=== PATIENT | female | born 1955 | race Caucasian/White ===

== ENCOUNTER 2019-10-28 15:18 | Emergency (ER) | payer MEDICARE, OTHER ==
[~2019-10-28] VITALS: Ht 167.6 cm; Wt 81.7 kg
[~2019-10-28 15:18] MED LIST: ANTACID500 MG PO; ASPIRIN81 M2 PO; B COMPLEX-VITA1 EACH PO; BUDEPRION XL300 MG PO; CALCIUM 600 +1 EAC8 PO; FISH OIL 1,0001 EAC5 PO; GLUCOPHAGE1000 MG PO; GLUCOTROL10 MG PO; HYDROCODON-ACE1 EAC1 PO; JANUVIA100 MG PO; LANTUS SUBQ; LANTUSSOLASTAR SUBQ; LOVASTAT40 PO; METOCLOPRAMIDE10 MG PO; NEURONTIN 300300 M1 PO; NIASPAN 500 MG500 M1 PO; NORCO 5-325 TA1 EACH PO; OMEPRAZOLE20 MG PO; OMEPRAZOLE40 MG PO; SIMVASTATIN40 MG PO
[2019-10-28 16:00] VITALS: BP 128/58
[2019-10-28 16:03] LABS: INFLUENZA A ANTIGEN Negative (Negative); INFLUENZA B ANTIGEN Negative (Negative)
[2019-10-28] MEDS ORDERED: PROAIR HFA8.5 GM INH (16:03)
[2019-10-28] MEDS ORDERED: ZITHROMAX250 MG PO (16:03)
== END 2019-10-28 16:21 | disposition home or self-care (01) ==
LOC: M.ERS 15:18
PROVIDERS: Physician Assistant
DX: J40 Bronchitis, not specified as acute or chronic (principal); E11.9 Type 2 diabetes mellitus without complications; E78.00 Pure hypercholesterolemia, unspecified; G47.30 Sleep apnea, unspecified; I10 Essential (primary) hypertension; J44.9 Chronic obstructive pulmonary disease, unspecified; Z90.49 Acquired absence of other specified parts of digestive tract; Z90.710 Acquired absence of both cervix and uterus; Z88.0 Allergy status to penicillin; Z79.4 Long term (current) use of insulin

== ENCOUNTER 2020-04-12 13:06 | Observation (INO) | payer MEDICARE, OTHER ==
[~2020-04-12] VITALS: Ht 165.1 cm; Wt 79.7 kg
[~2020-04-12 13:06] MED LIST changes: +PROAIR HFA8.5 GM INH; +ZITHROMAX250 MG PO
[2020-04-12 13:09] VITALS: BP 145/66
[2020-04-12] MEDS ORDERED: [UNRECOGNIZED DRUG - REMARK] (13:15)
[2020-04-12 13:23] LABS: ABSOLUTE BASOPHILS 0.1 thou/uL (0.0-0.2); ABSOLUTE EOSINOPHILS 0.2 thou/uL (0.0-0.7); ABSOLUTE LYMPHOCYTES 1.9 thou/uL (0.8-5.3); ABSOLUTE MONOCYTES 0.4 thou/uL (0.0-1.2); ABSOLUTE NEUTROPHILS 2.5 thou/uL (1.6-8.1); EOSINOPHILS 4.2 %; HEMATOCRIT 32.2 % (37.0-47.0); HEMOGLOBIN 11.1 gm/dL (12.0-15.0); LYMPHOCYTES 37.7 %; MCH 29.8 pg (26.0-34.0); MCHC 34.4 g/dL (28.0-37.0); MCV 86.5 fL (80.0-100.0); MONOCYTES 8.5 %; MPV 9.3 fl. (7.2-11.1); NUCLEATED RBCS 0 /100WBC; PLATELET COUNT* 215 thou/uL (150-400); POLYS 48.6 %; RBC 3.73 mil/uL (4.20-5.00); RDW-CV 13.9 % (10.5-14.5); WBC 5.1 thou/uL (4.0-11.0)
[2020-04-12 13:29] LABS: CALCIUM 9.1 mg/dL (8.5-10.1); POTASSIUM 4.8 mmol/L (3.5-5.1)
[2020-04-12 13:40] LABS: ALBUMIN 4.1 g/dL (3.4-5.0); MAGNESIUM 1.4 mg/dL (1.8-2.4); TOTAL BILIRUBIN 0.5 mg/dL (<0.1-1.0); TOTAL PROTEIN 7.9 g/dL (6.4-8.2)
[2020-04-12 18:30] VITALS: BP 135/62
[2020-04-12 18:33] VITALS: BP 154/72
--- NOTE | 2020-04-12 19:01 | NUR ---
PATIENT ARRIVED TO FLOOR THIS EVENING FROM ER PER CART. PATIENT IS ALERT AND ORIENTED X 4 ON ARRIVAL. SHE C/O MILD CHEST PAIN AT 1 TO 2 ON ARRIVAL. PATIENT PLACED ON O2 AT 2 LITERS NC. ORIENTED TO ROOM AND PROCEDURES. CALL LIGHT IS IN REACH. PATIENT PLACED ON TELE MONITOR. FALL PRECAUTIONS EXPLAINED. PATIENT VERBALIZES UNDERSTANDING OF INSTRUCTIONS.
[2020-04-12 19:42] VITALS: BP 127/65
[2020-04-12] MEDS ORDERED: TOPROL XL25 MG PO (20:02)
[2020-04-12] MEDS ORDERED: MAGNESIUM250 M1 PO (20:03)
[2020-04-12] MEDS ORDERED: LEXAPRO 10 MG T10 M1 PO (20:04)
[2020-04-12] MEDS ORDERED: PLAVIX 75 MG TA75 MG PO (20:04)
[2020-04-12] MEDS ORDERED: COZAAR 25 MG TA25 M1 PO (20:04)
[2020-04-12] MEDS ORDERED: ROSUVASTATIN CA20 MG PO (20:05)
[2020-04-12 23:59] VITALS: BP 127/63
--- NOTE | 2020-04-13 00:43 | NUR ---
ASSUMED CARE OF PT AT 1900. PT IS ALERT AND ORIENTED. VSS. PERRLA. PT REPORTS SLIGHT PAIN/PRESSURE IN CHEST. PT RATES AT A 1. PT IS IN SINUS ARRYTHMIA ON THE TELEMETRY. PT IS RESTING COMFORTABLY IN BED. RESPIRATIONS ARE EVEN AND NONLABORED. WILL CONTINUE TO MONITOR PT.
[2020-04-13 04:00] VITALS: BP 127/63
[2020-04-13 08:00] VITALS: BP 127/63
--- NOTE | 2020-04-13 12:30 | NUR ---
ASSUMED CARE OF PATIENT THIS AM AT 0730. PATIENT IS ALERT AND ORIENTED X 4. SHE STATES HER CHEST PAIN IS AT A 1 THIS AM. TELE SHOWS SINUS ARRYTHMIA WITH A 1DAVB. DR JACOBO IN TO SEE PATIENT. PATIENT IS RESTING AT THIS TIME. NO FALLS OR INJURY.
[2020-04-13 13:47] VITALS: BP 121/63
[2020-04-13 16:21] VITALS: BP 132/73
[2020-04-13 20:00] VITALS: BP 128/69
[2020-04-14] VITALS: BP 141/69
[2020-04-14 04:00] VITALS: BP 120/60
[2020-04-14 07:50] VITALS: BP 129/71
[2020-04-14 11:51] VITALS: BP 123/58
[2020-04-14 14:46] VITALS: BP 123/58
--- NOTE | 2020-04-14 14:59 | 2DMMODE ---
[place] [address] 2 D/M-MODE ECHOCARDIOGRAM Name: ELBA MENEZESDON Garza Room: [address] Cristofer Booth#: [id number] Admission: 04/12/20 Attend Phys: Colby Dubois Discharge: Date of : 51 Date of Service: 04/14/20 1459 Report #: [id number] THIS REPORT FOR: cc: Jens Molina,Jens Laura,Ayden Canales MD [facility] ~ APPROVED REPORT Study performed: 04/14/2020 09:45:51 EXAM: Comprehensive 2D, Doppler, and color-flow Echocardiogram Patient Location: In-Patient Room #: [facility] Status: routine BSA: 1.80 HR: 56 bpm BP: 129/71 mmHg Rhythm: NSR Other Information Study Quality: Good Indications Dyspnea Chest Pain 2D Dimensions IVSd: 10.14 (7-11mm) LVOT Diam: 20.85 (18-24mm) LVDd: 43.69 mm PWd: 11.33 (7-11mm) Ascending Ao: 37.03 (22-36mm) LVDs: 27.21 (25-40mm) Aortic Root: 33.26 mm Volumes Left Atrial Volume (Systole) LA ESV Index: 26.70 mL/m2 Aortic Valve AoV Peak James.: 1.32 m/s AO Peak Gr.: 6.97 mmHg LVOT Max P.41 mmHg AO Mean Gr.: 3.45 mmHg LVOT Mean P.60 mmHg LVOT Max V: 0.92 m/s AO V2 VTI: 28.94 cm LVOT Mean V: 0.57 m/s SHANE (VTI): 2.59 cm2 LVOT V1 VTI: 21.98 [place] [address] 2 D/M-MODE ECHOCARDIOGRAM Name: MARIMAR MENEZES Room: [address]R.#: [id number] Admission: 04/12/20 Attend Phys: Colby Dubois Discharge: Date of : 51 Date of Service: 04/14/20 1459 Report #: [id number] Mitral Valve E/A Ratio: 1.00 MV Decel. Time: 184.40 ms MV E Max James.: 0.83 m/s MV PHT: 53.48 ms MVA (PHT): 4.11 cm2 TDI E/Lateral E': 8.30 E/Medial E': 7.55 Medial E' James.: 0.11 m/s Lateral E' James.: 0.10 m/s Pulmonary Valve PV Peak James.: 0.88 m/s PV Peak Gr.: 3.10 mmHg Tricuspid Valve RAP Estimate: 5.00 mmHg TR Peak Gr.: 17.00 mmHg RVSP: 22.00 mmHg PA Pressure: 22.00 mmHg Left Ventricle The left ventricle is normal size. There is normal LV segmental wall motion. There is normal left ventricular wall thickness. Left ventricular systolic function is normal. The left ventricular ejection fraction is within the normal range. LVEF is 60-65%. The left ventricular diastolic function is normal. Right Ventricle The right ventricle is normal size. The right ventricular systolic function is normal. Atria The left atrium size is normal. The right atrium size is normal. Aortic Valve The aortic valve is normal in structure. No aortic regurgitation is present. There is no aortic valvular stenosis. Mitral Valve Mild mitral annular calcification. There is no mitral valve regurgitation noted. No evidence of mitral valve stenosis. Tricuspid Valve The tricuspid valve is normal in structure[place] [address] 2 D/M-MODE ECHOCARDIOGRAM Name: MARIMAR MENEZES Room: [address]#: [id number] Admission: 04/12/20 Attend Phys: Colby Dubois Discharge: Date of : 51 Date of Service: 04/14/20 1459 Report #: [id number] regurgitation. Unable to assess PA pressure. Pulmonic Valve Pulmonic valve is grossly normal in structure. There is no pulmonic valvular regurgitation. Great Vessels The aortic root is normal in size. IVC is normal in size and collapses >50% with inspiration. Pericardium There is no pericardial effusion. <Conclusion> The left ventricle is normal size. There is normal left ventricular wall thickness. Left ventricular systolic function is normal. The left ventricular ejection fraction is within the normal range. LVEF is 60-65%. The left ventricular diastolic function is normal. The right ventricle is normal size. The left atrium size is normal. The aortic valve is normal in structure. Mild mitral annular calcification. There is no mitral valve regurgitation noted. No evidence of mitral valve stenosis. The tricuspid valve is normal in structure. IVC is normal in size and collapses >50% with inspiration. There is no pericardial effusion. There is normal LV segmental wall motion. <ELECTRONICALLY SIGNED> By: Ayden Figueroa MD, FACC 04/14/20 1459 1459 1459 Ayden Figueroa MD, FACC /INF
--- NOTE | 2020-04-14 15:18 | NUR ---
PATIENT HAD ECHO THIS SHIFT, CNA LTC TRACING SB. PER FIORDALIZA FROM CARDIOLOGY, PATIENT TO HAVE ONE TIME DOSE OF TORADOL FOR CHEST PAIN. THIS NURSE ATTEMPTED TO GIVE MEDICATION VIA IV AND IV NOT FLUSHING, IV NOTED TO BE CURLED OUT OF VEIN. IV DC'D AT THAT TIME. TIM MANCERA NOTIFIED AND TORADOL DC AND IBUPROFEN ORDERED AND GIVEN. PATIENT RATING PAIN A 2/10 AND AFTER GIVEN NO PAIN NOTED. TIM MANCERA NOTIFIED AND AWARE OF ECHO RESULTS AND OK TO DC HOME. DR. CORTES NOTIFIED OF ECHO RESULTS AND OK TO DC HOME. VERBALIZES UNDERSTANDING OF PAPERWORK, NO SCRIPTS. PATIENT TAKEN OUT VIA WHEELCHAIR WITH ALL BELONGINGS.
--- NOTE | 2020-04-14 15:32 | EKG ---
[place] [address] ELECTROCARDIOGRAM REPORT Name: CLIFMARIMAR Kayla Room: [address]#: [id number] Admission: 04/12/20 Attend Phys: Colby Dubois Discharge: 04/14/20 Date of : 51 Date of Service: 04/12/20 1312 Report #: [id number] THIS REPORT FOR: //name// [facility] ED Test Date: 2020-04-12 Test Time: 13:12:47 Pat Name: MARIMAR MENEZES Department: Room: [facility] Gender: F Portuguese Tutor: MARÍA : 1955 Requested By: Stepan Smith Order Number: [id number] MD: Ayden Figueroa Measurements Intervals [place] Rate: 69 P: 88 VA: 192 QRS: 50 QRSD: 111 T: 37 QT: 378 QTc: 405 Interpretive Statements Sinus rhythm Atrial premature complex Low voltage, extremity leads Abnormal R-wave progression, late transition No previous ECG available for comparison Electronically Signed On 04-14-2020 15:31:44 CDT by Ayden Figueroa [email or web address] <ELECTRONICALLY SIGNED> By: Ayden Figueroa MD, [facility] 04/14/20 1531 1312 1312 Ayden Figueroa MD, [facility] /EPI
--- NOTE | 2020-04-14 16:48 | CON ---
[address] [address] CONSULTATION Name: MARIMAR MENEZES Room: [address] Cristofer Booth#: [id number] Admission: 04/12/20 Attend Phys: Carrillo Bee Discharge: 04/14/20 Date of : 51 Report #: [id number] THIS REPORT FOR: //name// cc: Jens Molina Matthew DO ~ THIS REPORT FOR: //name// CC: Rylan Dubois DATE OF SERVICE: 04/13/2020 CARDIOLOGY CONSULTATION PRIMARY CARE PHYSICIAN: Dr. Rylan Molina. HISTORY OF PRESENT ILLNESS: The patient is a 64-year-old single white female who I was asked to see in the hospital after she complained of chest pain. Unfortunately, her old records are not available. She has never been here to [place] before. She states that 4 years ago, her blood pressure elevated and she was found to have coronary artery disease. Because of insurance purposes, she went to [facility] and had 3 coronary artery stents placed using her radial artery. She has done well since that time. She currently sees a railroad firer at [facility]. She actually states she had a pharmacologic nuclear stress test a month ago at [facility]. She was told there was thinning, but no significant ischemia. She has been treated medically. She stays very active. She was doing well until Tuesday night. She felt a pressured chest, went into her back. She noticed a tender spot on her chest. The pain persisted Tuesday night and was there all day yesterday. She finally drove herself to the Emergency Room last night. Today, the pain is still there. She denied it radiating to her arms or jaw. No associated shortness of breath, diaphoresis, nausea. She denied any fever, cough, or bleeding. The pain was not related to food. She denies exertional dyspnea, palpitations or syncope. No peripheral edema. PAST MEDICAL HISTORY: She has had cholecystectomy, hysterectomy. She has a history of diabetes. CURRENT MEDICATIONS: Consists of metformin, glipizide, Januvia. She recently started on beta tamika. She is on insulin, lovastatin, omeprazole, Neurontin. ALLERGIES: SHE HAS AN ALLERGY TO PENICILLIN. FAMILY HISTORY: [place] [address] CONSULTATION Name: MARIMAR MENEZES [address]: [address]#: [id number] Admission: 04/12/20 Attend Phys: Carrillo Bee Discharge: 04/14/20 Date of : 51 Report #: [id number] SOCIAL HISTORY: She is . Her 2 months ago. [place] near [place]. Quit smoking years ago. No alcohol abuse. REVIEW OF SYSTEMS: She has no history of stroke or asthma. She apparently had a history of pancreatitis in the past. She has sleep apnea. No cancer. She apparently saw a counselor after her 2 months ago. No chronic skin condition. PHYSICAL EXAMINATION: GENERAL: Revealed a middle-aged female. She appeared in no distress. VITAL SIGNS: She had a blood pressure of 120/60, pulse 60. She is afebrile. HEENT: She was anicteric. Conjunctivae pink. Mucous membranes moist. NECK: Veins nondistended. No carotid bruits. CHEST: Clear to auscultation. CARDIAC: Regular rate and rhythm. No murmur. ABDOMEN: Soft. EXTREMITIES: Had no edema. SKIN: Warm and dry. NEUROLOGIC: Nonfocal. Her ECG on admission showed a sinus rhythm. There was no significant ST or T-wave change noted. Her chest x-ray on admission showed normal heart size and clear lung arrieta. LABORATORY WORK: Shows sodium 138, creatinine 1.0, glucose 171. Liver enzymes were normal. Troponins all 0.06. White blood cell count 5.1, hemoglobin 11.1. IMPRESSION AND RECOMMENDATIONS: 1. Chest pain. The patient with previous coronary stents. He apparently had a stress test just 1 month ago at [facility]. No evidence of myocardial infarction. Suspect chest pain is noncardiac. I would recommend attempting to obtain the results of the stress test done 1 month ago prior to proceeding additional evaluation. 2. Diabetes. 3. Hyperlipidemia. The patient is on a statin drug. 4. History of pancreatitis. 5. Recent stressful situation with the loss of her . <ELECTRONICALLY SIGNED> By: Kayode Cummings MD, [facility] 04/14/20 1648 0828 [id number] Cummings MD, [facility] /nt
== END 2020-04-14 15:26 | disposition home or self-care (01) ==
LOC: M.ERS 13:06 → M.2W 13:55 → M.TBA-ER 13:55 → M.2W 18:23
PROVIDERS: Emergency Medicine Emergency Medical Services; ADMIT Internal Medicine; ATTEND Internal Medicine
DX: R07.89 Other chest pain (principal); J20.9 Acute bronchitis, unspecified; M54.9 Dorsalgia, unspecified; Z87.891 Personal history of nicotine dependence; J44.9 Chronic obstructive pulmonary disease, unspecified; I12.9 Hypertensive chronic kidney disease with stage 1 through stage 4 chronic kidney disease, or unspecified chronic kidney disease; E11.22 Type 2 diabetes mellitus with diabetic chronic kidney disease; N18.9 Chronic kidney disease, unspecified; Z90.49 Acquired absence of other specified parts of digestive tract; Z90.710 Acquired absence of both cervix and uterus

== ENCOUNTER 2020-06-29 15:59 | Emergency (ER) | payer MEDICARE, OTHER ==
[~2020-06-29] VITALS: Ht 165.1 cm; Wt 73.5 kg
[~2020-06-29 15:59] MED LIST changes: +COZAAR 25 MG TA25 M1 PO; +LEXAPRO 10 MG T10 M1 PO; +MAGNESIUM250 M1 PO; +PLAVIX 75 MG TA75 MG PO; +ROSUVASTATIN CA20 MG PO; +TOPROL XL25 MG PO; +[UNRECOGNIZED DRUG - REMARK]
[2020-06-29 16:31] LABS: URINE BILIRUBIN NEGATIVE (Negative); URINE BLOOD NEGATIVE (Negative); URINE CLARITY CLEAR; URINE COLOR YELLOW; URINE GLUCOSE-RANDOM NEGATIVE (Negative); URINE KETONES TRACE (Negative); URINE LEUKOCYTES-REFLEX NEGATIVE (Negative); URINE NITRITE-REFLEX NEGATIVE (Negative); URINE PROTEIN TRACE (Negative); URINE UROBILINOGEN 0.2 E.U./dl (0.2-1.0)
[2020-06-29 16:46] LABS: ABSOLUTE BASOPHILS 0.1 thou/uL (0.0-0.2); ABSOLUTE EOSINOPHILS 0.1 thou/uL (0.0-0.7); ABSOLUTE LYMPHOCYTES 1.5 thou/uL (0.8-5.3); ABSOLUTE MONOCYTES 0.7 thou/uL (0.0-1.2); ABSOLUTE NEUTROPHILS 5.8 thou/uL (1.6-8.1); BASOPHILS 1.2 %; EOSINOPHILS 0.9 %; HEMATOCRIT 32.8 % (37.0-47.0); HEMOGLOBIN 11.7 gm/dL (12.0-15.0); LYMPHOCYTES 18.3 %; MCH 30.4 pg (26.0-34.0); MCHC 35.6 g/dL (28.0-37.0); MCV 85.4 fL (80.0-100.0); MONOCYTES 8.9 %; MPV 8.8 fl. (7.2-11.1); NUCLEATED RBCS 0 /100WBC; PLATELET COUNT* 236 thou/uL (150-400); POLYS 70.7 %; RBC 3.84 mil/uL (4.20-5.00); RDW-CV 13.9 % (10.5-14.5); WBC 8.2 thou/uL (4.0-11.0)
[2020-06-29 16:54] LABS: CALCIUM 9.1 mg/dL (8.5-10.1); CREATININE 1.2 mg/dL (0.6-1.3); POTASSIUM 4.1 mmol/L (3.5-5.1)
[2020-06-29 16:59] LABS: TOTAL BILIRUBIN 0.7 mg/dL (<0.1-1.0); TOTAL PROTEIN 7.8 g/dL (6.4-8.2)
[2020-06-29] MEDS ORDERED: NAPROSYN500 MG PO (18:32)
[2020-06-29] MEDS ORDERED: NORCO 5-325 TA1 EAC2 PO (18:32)
[2020-06-29 18:50] VITALS: BP 132/64
== END 2020-06-29 18:52 | disposition home or self-care (01) ==
LOC: M.ERS 15:59
PROVIDERS: Physician Assistant
DX: M54.5 Low back pain (principal); R10.9 Unspecified abdominal pain; E11.9 Type 2 diabetes mellitus without complications; E78.00 Pure hypercholesterolemia, unspecified; G47.30 Sleep apnea, unspecified; I10 Essential (primary) hypertension; J44.9 Chronic obstructive pulmonary disease, unspecified; Z90.710 Acquired absence of both cervix and uterus; Z90.49 Acquired absence of other specified parts of digestive tract; Z88.0 Allergy status to penicillin; Z87.442 Personal history of urinary calculi